=== PATIENT | female | born 1990 | race Hispanic/Latino ===

== ENCOUNTER 2018-11-17 09:35 | Emergency (ER) | payer BC, SELFPAY | END 2018-11-17 10:25 | disposition home or self-care (01) | LOC: SCSER 09:35 | DX: M79.622 Pain in left upper arm (principal) | CPT/HCPCS: 99283 ==

== ENCOUNTER 2021-02-24 19:30 | Outpatient (CLI) | payer MEDICAID | END 2021-02-24 19:31 | disposition home or self-care (01) | LOC: SLEEPLAB 19:30 | PROVIDERS: ATTEND Nurse Practitioner Family | DX: G47.33 Obstructive sleep apnea (adult) (pediatric) (principal); R53.83 Other fatigue; R40.0 Somnolence; E66.9 Obesity, unspecified; R06.83 Snoring; G47.00 Insomnia, unspecified; R35.1 Nocturia; G47.10 Hypersomnia, unspecified | CPT/HCPCS: 95810 ==

== ENCOUNTER 2023-11-13 08:06 | Emergency (ER) | payer SELFPAY ==
[2023-11-13] MEDS ORDERED: Ondansetron PF 4 MG/2 ML Vial ONE (08:37)
[2023-11-13] MEDS ORDERED: Dicyclomine 20 MG/2 ML VIAL ONE (08:37)
[2023-11-13 09:03] LABS: #Basophils 0.03 10x3/uL (0.0-0.2); %Basophils 0.2 % (0.0-1.0); %Eosinophils 0.6 % (0.0-10.0); %Lymphocytes 11.3 % (21.0-51.0); %Monocytes 4.4 % (0.0-10.0); %Neutrophils 83.1 % (42.0-75.0); Hematocrit 44.8 % (36.0-47.0); Hemoglobin 14.8 g/dL (12.0-16.0); Mean Corpuscular Hemoglobin 29.2 pg (27.0-31.0); Mean Corpuscular Volume 88.4 fL (78.0-98.0); Platelet Count 296 10x3/uL (130-400); RBC Distribution Width 13.5 % (11.5-14.5); Red Blood Cell (RBC) Count 5.07 mill/uL (4.20-5.40)
[2023-11-13 09:18] LABS: BHCG - Serum Negative (NEGATIVE)
[2023-11-13 09:19] LABS: Pregs Control Background? CLEAR/WHITE (CLR/WHITE); Pregs Control Bar Appear? YES (CONTROL BAR)
[2023-11-13 09:30] LABS: ALT (SGPT) 25 U/L (8-55); AST (SGOT) 22 U/L (5-34); Albumin 4.3 g/dL (3.5-5.0); Alkaline Phosphatase 81 U/L (40-110); Anion Gap 11 mmol/L (10-20); BUN (Urea Nitrogen) 10 mg/dL (7.0-18.7); Bilirubin, Total 0.7 mg/dL (0.2-1.2); Calc. Creatinine Clearance 0 mL/min (70-130); Calcium 9.5 mg/dL (7.8-10.44); Carbon Dioxide 23 mmol/L (22-29); Chloride 106 mmol/L (98-107); Estimated GFR 103; Globulin 3.4 g/dL (2.4-3.5); Glucose 90 mg/dL (70-105); Lipase 18 U/L (8-78); Protein, Total 7.7 g/dL (6.0-8.3); Sodium 137 mmol/L (136-145)
[2023-11-13 09:43] LABS: Bilirubin 1+ (Negative); Blood, Urine 2+ (Negative); CAUTI Indications for Culture Pelvic or flank pain; Calcium Oxalate Crystals 2+ HPF (None Seen); Clarity Turbid (Clear); Glucose, Urine (Dipstick) Normal (Negative); Ketone, Urine Trace mg/dL (Negative); Leukocyte 250 Leu/uL (Negative); Nitrite Negative (Negative); Protein, Urine (Dipstick) 100 mg/dL (Neg-Trace); Urobilinogen 6 mg/dL (Less than 2)
[2023-11-13 09:53] LABS: Specific Gravity, Urine 1.054 (1.002-1.036); WBC/HPF 21-50 HPF (0-3)
[2023-11-13 09:54] LABS: Bacteria/HPF 2+ HPF (None Seen); Urine Culture Reflex Yes Yes
[2023-11-13] MEDS ORDERED: Sodium Chloride 0.9% 100 ML ONE (10:11)
[2023-11-13] MEDS ORDERED: Potassium Chloride 20 MEQ TAB ONE (10:11)
[2023-11-13] MEDS ORDERED: cefTRIAXone (ROCEPHIN) 2 GM VIAL ONE (10:11)
[2023-11-13] MEDS ORDERED: Iopamidol-370 76% 500 ML MDV (1 ML CHARGE) ONE (10:57)
[2023-11-13] MEDS ORDERED: Metoclopramide HCl 10 MG (2 mL) VIAL ONE (11:38)
[2023-11-13] MEDS ORDERED: Ketorolac Tromethamine 30 MG (1 mL) VIAL ONE (11:38)
== END 2023-11-13 13:11 | disposition home or self-care (01) ==
LOC: ERS 08:06
DX: K52.9 Noninfective gastroenteritis and colitis, unspecified (principal); N39.0 Urinary tract infection, site not specified; E87.6 Hypokalemia; R11.2 Nausea with vomiting, unspecified
CPT/HCPCS: 36415; 74177; 80053; 81001; 83690; 83735; 84703; 85025; 87077; 87086; 96361; 96365; 96367; 96372; 96375; J0696; J1885; J2405; J2765; J3490; Q9967